=== PATIENT | male | born 1970 | race Caucasian/White ===

== ENCOUNTER 2024-06-21 23:53 | Emergency (ER) | payer OTHER, SELFPAY ==
--- OUTSIDE RECORDS SUMMARY | 2024-06-21 23:56 | XMS_ITS | Clinical Summary ---
Author Organization [facility] Address [address] [place] [address] Phone Care Team Providers Care Handbag Parts Cutter Name Role Phone Terry Calvert MD Primary Care Provider [phone] Dayton Millan DPM Unavailable [phone] Allergies No known active allergies Medications ibuprofen (MOTRIN) 600 MG Tablet Take 1 Tab by mouth every 6 hours as needed for Pain. 20 Tab 0 6 Active gabapentin (NEURONTIN) 300 MG Capsule 7 Active ARIPiprazole (ABILIFY) 10 MG Tablet 7 Active bethanechol (URECHOLINE) 10 MG Tablet 7 Active Blood Glucose Monitoring Suppl (ONE TOUCH ULTRA MINI) w/Device Kit USE BID 0 7 Active cyclobenzaprine (FLEXERIL) 10 MG Tablet 7 Active esomeprazole (NEXIUM) 40 MG CAPSULE DELAYED RELEASE 7 Active ONE TOUCH ULTRA TEST Strip TEST ONCE DAILY 1 7 Active ONETOUCH DELICA LANCETS 33G Misc USE ONCE DAILY DIRECTED 5 7 Active metFORMIN (GLUCOPHAGE) 1000 MG Tablet 7 Active SUMAtriptan (IMITREX) 100 MG Tablet 3 8 Active terbinafine (LAMISIL) 1 % Cream Apply 2 times daily. Application Site: Apply to bilateral plantar aspects avoiding the web spaces 15 g 9 Active Active Problems Problem Noted Date Diagnosed Date [place] or callus 08/28/2017 Diabetic polyneuropathy asso ciated with type 2 diabetes mellitus 02/21/2017 Dermatophytosis of nail 02/21/2017 Diabetic foot ulcer 02/21/2017 Family History Medical History Relation Name Comments Osteoporosis Mother Relation Name Status Comments Mother Social History Tobacco Use Types Packs/Day Years Used Date Smoking Tobacco: Never Smokeless Tobacco: Never Tobacco Cessation:Counseling Given: Yes Alcohol Use Standard Drinks/Week Comments No 0 (1 standard drink = 0.6 oz pur e alcohol) Sexually Active Control Partners Comments Not Currently Sex and Gender Information Value Date Recorded Sex Assigned at Not on file Legal Sex Male 7:32 PM CDT Gender Identity Not on file Sexual Orientation Not on file Last Filed Vital Signs Vital Sign Reading Time Taken Comments Blood Pressure 134/82 04/27/2019 2:11 PM PRIVATE SECRETARY Pulse 66 04/27/2019 2:11 PM PRIVATE SECRETARY Temperature 35.9 ??C (96.7 ??F) 04/27/2019 2:11 PM CS T Respiratory Rate 17 04/27/2019 2:11 PM PRIVATE SECRETARY Oxygen Saturation 90% 04/27/2019 2:11 PM PRIVATE SECRETARY Inhaled Oxygen Concentration - - Weight 91.6 kg (201 lb 14.4 oz) 04/27/2019 2:11 PM PRIVATE SECRETARY Height 170.2 cm (5' 7 ) 04/27/2019 2:11 PM PRIVATE SECRETARY Body Mass Index 31.62 04/27/2019 2:11 PM PRIVATE SECRETARY Plan of Treatment Health Maintenance Due Date Last Done Comments Diabetes: Eye Exam 1971 Diabetes: Foot Exam 1971 Diabetes: Hemoglobin A1c 1971 Hepatitis C Virus (HCV) Screening 1971 TdaP Immunization 1971 Pneumococcal Immunization Co mbined (1 of 2 - PCV) 1977 Hepatitis B Immunization (1 of 3 - 19+ 3-dose series) 1990 Pneumococcal Immunization (5 0+ years) (1 of 2 - PCV) 1990 Colonoscopy 02/21/2016 Colorectal Cancer Screening 02/21/2016 Diabetes: Nephropathy Screening 06/05/2016 6 Cologuard 2021 Immunochemical Fecal Occult Blood 2021 Zoster Immunization (1 of 2) 2021 Influenza Immunization (#1) 2024 06/19/2012 SARS-COV-2 Immunization ( season) 2024 Respiratory Syncytial Virus (RSV) Immunization (Adult) (1 - -dose 75+ series) 2046 Meningococcal Immunization (ACWY) Aged Out No longer eligible based on patient's age to complete this topic Rotavirus Immunization Aged Out No lo nger eligible based on patient's age to complete this topic Procedures Procedure Name Priority Date/Time Associated Diagnosis Comments CMP (COMPREHENSIVE METABOLIC PANEL) STAT 06/05/2015 12:21 PM PRIVATE SECRETARY from Last 3 Months or Most Recently Relevant to Health Maintenance Results * (ABNORMAL) CMP (Comprehensive Metabolic Panel) (06/05/2015 12:21 PM PRIVATE SECRETARY) SODIUM 136 131 - 143 mmol/L 06/05/2015 1:21 PM [facility] POTASSIUM 3.9 3.5 - 5.1 mmol/L 06/05/2015 1:21 PM [facility] CHLORIDE 99(L) 100 - 110 mmol/L 06/05/2015 1:21 PM [facility] CO2, VENOUS 27 22 - 32 mmol/L 06/05/2015 1:21 PM [facility] ANION GAP 13.9 8.0 - 20.0 mmol/L 06/05/2015 1:21 PM [facility] GLUCOSE 104 70 - 105 mg/dL 06/05/2015 1:21 PM [facility] BUN 15 10 - 31 mg/dL 06/05/2015 1:21 PM [facility] CREATININE, BLOOD 0.96 0.60 - 1.30 mg/dL 06/05/2015 1:21 PM [facility] BUN/CREATININE RATIO 16 12 - 20 ratio 06/05/2015 1:21 PM [facility] TOTAL PROTEIN 7.1 6.0 - 8.3 g/dL 06/05/2015 1:21 PM [facility] ALBUMIN 4.0 3.5 - 5.2 g/dL 06/05/2015 1:21 PM [facility] A/G RATIO 1.3 1.0 - 2.0 06/05/2015 1:21 PM [facility] CALCIUM 9.8 8.9 - 10.3 mg/dL 06/05/2015 1:21 PM PRIVATE SECRETARY [facility] T BILI 0.3 0.3 - 1.2 mg/dL 06/05/2015 1:21 PM PRIVATE SECRETARY [facility] SGOT (AST) 14 1 - 40 U/L 06/05/2015 1:21 PM PRIVATE SECRETARY [facility] SGPT (ALT) 10 1 - 40 U/L 06/05/2015 1:21 PM PRIVATE SECRETARY [facility] ALKALINE PHOSPHATASE 84 40 - 130 U/L 06/05/2015 1:21 PM PRIVATE SECRETARY [facility] GFR, EST. NONAFRICAN >60 >=60 06/05/2015 1:21 PM PRIVATE SECRETARY [facility] GFR, EST. >60 >=60 06/05/2015 1:21 PM [facility] Comment: Creatinine Clearance is the preferred criteria for selecting drug dose adjustments in renally impaired patients. ??The GFR is provided as additional pertinent clinical information. GFR is reported in mL/min/1.73 sq m. Blood specimen (specimen) Venipuncture / Unknown 06/05/2015 12:21 PM PRIVATE SECRETARY 06/05/2015 12:49 PM PRIVATE SECRETARY Dora Guzman Page PAC CHEMISTRY ORDERABLES Final R esult [facility] [address] [place] [address] from Last 3 Months or Most Recently Relevant to Health Maintenance Insurance MEDICARE C [employer] Care Teams Handbag Parts Cutter Relationship Specialty Start Date End Date Terry Calvert MD [address] [facility] [address] [place] [address] PCP - General Internal Medicine 06/05/15 Dayton Millan DPM [address] [facility] [address] [place] [address] Consulting Physician Podiatry 02/21/17
[2024-06-22 00:33] VITALS: BP 122/77; PULSE 69; RESP 20; TEMP 36.3; O2SAT 100
--- NOTE | 2024-06-22 01:57 | PC.NURSE ---
Pt caregiver approached triage desk stating that they were going to leave due to wait times and pt getting agitated. Caregiver advised to be seen at nearest ED for worsening symptoms. Pt in NAD.
--- OUTSIDE RECORDS SUMMARY | 2024-06-22 02:03 | XMS_ITS | Clinical Summary ---
Author Organization [facility] Address [address] [place] [address] Phone Care Team Providers Care [employer] Science Teacher Name Role Phone Terry Calvert MD Primary Care Provider [phone] Dayton Millan DPM Unavailable Allergies No known active allergies Medications ibuprofen [...] Active Problems Problem Noted Date Diagnosed Date [place] or callus 08/28/2017 Diabetic polyneuropathy asso ciated [...] Comments Blood Pressure 134/82 04/27/2019 2:11 PM REPAIRER EVAPORATOR Pulse 66 04/27/2019 2:11 PM REPAIRER EVAPORATOR Temperature 35.9 ??C (96.7 ??F) 04/27/2019 2:11 PM CS T Respiratory Rate 17 04/27/2019 2:11 PM REPAIRER EVAPORATOR Oxygen Saturation 90% 04/27/2019 2:11 PM REPAIRER EVAPORATOR Inhaled Oxygen Concentration - - Weight 91.6 kg (201 lb 14.4 oz) 04/27/2019 2:11 PM REPAIRER EVAPORATOR Height 170.2 cm (5' 7 ) 04/27/2019 2:11 PM REPAIRER EVAPORATOR Body Mass Index 31.62 04/27/2019 2:11 PM REPAIRER EVAPORATOR Plan of Treatment Health Maintenance Due Date [...] (COMPREHENSIVE METABOLIC PANEL) STAT 06/05/2015 12:21 PM REPAIRER EVAPORATOR from Last 3 Months or Most Recently Relevant to Health Maintenance Results * (ABNORMAL) CMP (Comprehensive Metabolic Panel) (06/05/2015 12:21 PM REPAIRER EVAPORATOR) SODIUM 136 131 - 143 mmol/L 06/05/2015 1:21 PM [facility] POTASSIUM 3.9 3.5 - 5.1 mmol/L 06/05/2015 1:21 PM [facility] CHLORIDE 99(L) 100 - 110 mmol/L 06/05/2015 1:21 PM [facility] CO2, VENOUS 27 22 - 32 mmol/L 06/05/2015 1:21 PM [facility] ANION GAP 13.9 8.0 - 20.0 mmol/L 06/05/2015 1:21 PM [facility] GLUCOSE 104 70 - 105 mg/dL 06/05/2015 1:21 PM [facility] BUN 15 10 - 31 mg/dL 06/05/2015 1:21 PM [facility] CREATININE, BLOOD 0.96 0.60 - 1.30 mg/dL 06/05/2015 1:21 PM [facility] BUN/CREATININE RATIO 16 12 - 20 ratio 06/05/2015 1:21 PM [facility] TOTAL PROTEIN 7.1 6.0 - 8.3 g/dL 06/05/2015 1:21 PM [facility] ALBUMIN 4.0 3.5 - 5.2 g/dL 06/05/2015 1:21 PM [facility] A/G RATIO 1.3 1.0 - 2.0 06/05/2015 1:21 PM [facility] CALCIUM 9.8 8.9 - 10.3 mg/dL 06/05/2015 1:21 PM REPAIRER EVAPORATOR [facility] T BILI 0.3 0.3 - 1.2 mg/dL 06/05/2015 1:21 PM REPAIRER EVAPORATOR [facility] SGOT (AST) 14 1 - 40 U/L 06/05/2015 1:21 PM REPAIRER EVAPORATOR [facility] SGPT (ALT) 10 1 - 40 U/L 06/05/2015 1:21 PM REPAIRER EVAPORATOR [facility] ALKALINE PHOSPHATASE 84 40 - 130 U/L 06/05/2015 1:21 PM REPAIRER EVAPORATOR [facility] GFR, EST. NONAFRICAN >60 >=60 06/05/2015 1:21 PM REPAIRER EVAPORATOR [facility] GFR, EST. >60 >=60 06/05/2015 1:21 PM [facility] Comment: Creatinine Clearance is the preferred criteria for selecting drug dose adjustments in renally impaired patients. ??The GFR is provided as additional pertinent clinical information. GFR is reported in mL/min/1.73 sq m. Blood specimen (specimen) Venipuncture / Unknown 06/05/2015 12:21 PM REPAIRER EVAPORATOR 06/05/2015 12:49 PM REPAIRER EVAPORATOR Dora Guzman Page PAC CHEMISTRY ORDERABLES Final R esult [facility] [address] [place] [address] from Last 3 Months or Most Recently Relevant to Health Maintenance Insurance MEDICARE C [employer] Care Teams [employer] Science Teacher Relationship Specialty Start Date End Date Terry Calvert MD [address] [facility] [address] [place] [address] PCP - General Internal Medicine 06/05/15 Dayton Millan DPM [address] [facility] [address] [place] [address] Consulting Physician Podiatry 02/21/17
== END 2024-06-22 01:57 | disposition left against medical advice (07) ==
PROVIDERS: PCP Internal Medicine
DX: R13.10 Dysphagia, unspecified (principal)
CPT/HCPCS: 99199